=== PATIENT | male | born 1955 | race Asian ===

== ENCOUNTER 2020-03-13 07:16 | Outpatient (CLI) | payer BC ==
[2020-03-13 08:02] LABS: POTASSIUM 3.7 mmol/L (3.6-5.2)
== END 2020-03-13 23:22 | disposition home or self-care (01) ==
LOC: LABW 07:16
PROVIDERS: Internal Medicine Cardiovascular Disease
DX: Z79.899 Other long term (current) drug therapy (principal)
CPT/HCPCS: 36415; 80048; 83880

== ENCOUNTER 2021-07-27 11:24 | Outpatient (CLI) | payer BC | END 2021-07-27 19:00 | disposition home or self-care (01) | LOC: US 11:24 | PROVIDERS: ATTEND Nurse Practitioner Family | DX: M79.605 Pain in left leg (principal) ==

== ENCOUNTER 2021-09-18 09:58 | Outpatient (CLI) | payer BC | END 2021-09-18 20:52 | disposition home or self-care (01) | LOC: US 09:58 | PROVIDERS: ATTEND Nurse Practitioner Family | DX: M79.89 Other specified soft tissue disorders (principal); I10 Essential (primary) hypertension; E78.5 Hyperlipidemia, unspecified ==

== ENCOUNTER 2021-10-27 07:24 | Emergency (ER) | payer BC, OTHER ==
[~2021-10-27] VITALS: Ht 177.8 cm; Wt 81.6 kg
[2021-10-27 07:32] VITALS: TEMP 97.8
[2021-10-27 08:09] LABS: PLATELET COUNT 119 K/uL (142-355)
[2021-10-27 08:21] LABS: POTASSIUM 4.5 mmol/L (3.6-5.2)
[2021-10-27 10:46] VITALS: BP 122/65
== END 2021-10-27 10:46 | disposition home or self-care (01) ==
LOC: ED 07:24
PROVIDERS: Emergency Medicine Emergency Medical Services
DX: N13.2 Hydronephrosis with renal and ureteral calculous obstruction (principal)
CPT/HCPCS: 36415; 80053; 81000; 82150; 83690; 85027; 96360; 96361; 96365; 96375; 99284; J2405; J3490; Q9963

== ENCOUNTER 2023-01-05 10:57 | Outpatient (CLI) | payer BC, OTHER ==
[2023-01-05 11:42] LABS: POTASSIUM 4.6 mmol/L (3.6-5.2)
== END 2023-01-05 19:58 | disposition home or self-care (01) ==
LOC: LABW 10:57
PROVIDERS: ATTEND Internal Medicine Cardiovascular Disease
DX: I50.9 Heart failure, unspecified (principal)
CPT/HCPCS: 36415; 80048; 83880